=== PATIENT | female | born 1995 | race African-American/Black ===

== ENCOUNTER 2017-12-04 10:07 | Emergency (ER) | payer OTHER ==
[~2017-12-04] VITALS: Ht 157.5 cm; Wt 97.5 kg
[2017-12-04 10:38] LABS: URINE BILIRUBIN 1+ (Negative); URINE BLOOD 1+ (Negative); URINE CLARITY CLEAR; URINE COLOR YELLOW; URINE GLUCOSE-RANDOM* NEGATIVE (Negative); URINE KETONES NEGATIVE (Negative); URINE LEUKOCYTES 1+ (Negative); URINE NITRITE NEGATIVE (Negative); URINE PROTEIN (DIPSTICK) TRACE (Negative); URINE SPECIFIC GRAVITY >= 1.030 (1.005-1.035); URINE UROBILINOGEN 0.2 E.U./dl (0.2-1.0)
[2017-12-04 10:41] LABS: ICTOTEST (BILI CONFIRMATORY) Negative (Negative)
[2017-12-04 10:44] LABS: MUCUS 4-6 Moderate strn/LPF (None Seen); SQUAMOUS >10 Many /LPF (0-3)
[2017-12-04 10:46] LABS: CASTS None Seen /LPF (None Seen); CRYSTALS None Seen /LPF (None Seen); URINE RBC 3-10 Few /HPF (0-2)
[2017-12-04 10:48] LABS: URINE WBC 0-5 Rare /HPF (0-5)
[2017-12-04] MEDS ORDERED: FLAGYL500 MG PO (11:04)
[2017-12-04 11:55] VITALS: BP 128/72
[2017-12-07 15:07] LABS: NEISSERIA GONORRHEA-PCR Negative (Negative)
== END 2017-12-04 11:55 | disposition home or self-care (01) ==
LOC: ER 10:07
PROVIDERS: Physician Assistant
DX: A59.9 Trichomoniasis, unspecified (principal); Z20.2 Contact with and (suspected) exposure to infections with a predominantly sexual mode of transmission; R30.0 Dysuria